=== PATIENT | female | born 1960 | race African-American/Black ===

== ENCOUNTER 2019-08-07 15:19 | Inpatient (IN) | payer MEDICARE, MEDICAID ==
[~2019-08-07] VITALS: Ht 154.9 cm; Wt 54.4 kg
[2019-08-07 16:45] LABS: BASOPHILS % 0.6 % (0.0-2.0); EOSINOPHILS % 0.3 % (0.0-5.0); HEMATOCRIT. 24.4 % (36.0-48.0); HEMOGLOBIN. 8.3 g/dL (12.0-16.0); LYMPHOCYTES % 11.6 % (20.0-50.0); MEAN CORPUSCULAR HEMOGLOBIN 31.5 pg (28.0-32.0); MEAN CORPUSCULAR VOLUME 93.2 fL (81.0-99.0); MEAN PLATELET VOLUME 7.5 fl (7.4-10.4); MONOCYTES % 7.3 % (2.0-8.0); NEUTROPHILS % 80.2 % (40.0-76.0); PLATELET 346 x1000/uL (130-400); RED BLOOD CELL COUNT 2.62 mill/uL (4.2-5.4); RED CELL DISTRIBUTION WIDTH 16.4 % (11.6-14.6)
[2019-08-07] MEDS ORDERED: LABETALOL 5MG/ML SYR 20 MG/4 ML SYRINGE IV ONE ×2 (16:45→17:45)
[2019-08-07 16:48] LABS: CHLORIDE 116 mEq/L (98-107)
[2019-08-07] MEDS ORDERED: PIPERACILLIN/TAZ 3.375G PREMIX 50 ML IV ONE (19:45)
[2019-08-07] MEDS ORDERED: HYDRALAZINE 20MG/ML VIAL IV ONE (21:00)
[2019-08-07 23:50] VITALS: BP 188/107
[2019-08-08] VITALS (24 sets, daily range): BP systolic 141–208; BP diastolic 71–119
[2019-08-08] MEDS ORDERED: ACETAMINOPHEN 325MG TABLET PO PRN (02:00)
[2019-08-08] MEDS: FUROSEMIDE 40MG/4ML VIAL IVP SCH ×2 (03:38→14:47)
[2019-08-08] MEDS: CLONIDINE 0.2MG TABLET PO SCH ×3 (03:38→18:44)
[2019-08-08] MEDS ORDERED: HEPARIN 5000 UNITS/ML VIAL SUBCUT SCH (09:00)
[2019-08-08] MEDS ORDERED: HYDRALAZINE 20MG/ML VIAL IV PRN (10:45)
[2019-08-08] MEDS: PIPERACILLIN/TAZOBACTAM 2.25 G in DEXTROSE 5% WATER 50 ML IV SCH (14:48)
[2019-08-08 15:23] LABS: BASOPHILS % 0.7 % (0.0-2.0); HEMATOCRIT. 24.4 % (36.0-48.0); HEMOGLOBIN. 8.2 g/dL (12.0-16.0); LYMPHOCYTES % 15.5 % (20.0-50.0); MEAN CORPUSCULAR VOLUME 92.1 fL (81.0-99.0); MEAN PLATELET VOLUME 8.4 fl (7.4-10.4); MONOCYTES % 8.7 % (2.0-8.0); NEUTROPHILS % 74.1 % (40.0-76.0); PLATELET 315 x1000/uL (130-400); RED BLOOD CELL COUNT 2.65 mill/uL (4.2-5.4); RED CELL DISTRIBUTION WIDTH 16.5 % (11.6-14.6)
[2019-08-08 15:35] LABS: PROTHROMBIN TIME 10.4 sec (9.6-11.0)
[2019-08-08] MEDS ORDERED: HYDROCODONE/ACETAMINOPHEN 5/325MG TABLET PO PRN (16:00)
[2019-08-08] MEDS ORDERED: DEXTROSE 50% WATER 50ML SYRINGE IV PRN (16:00)
[2019-08-08] MEDS ORDERED: LORAZEPAM 2MG/ML CPJ IV PRN (16:00)
[2019-08-08] MEDS ORDERED: IPRATROPIUM/ALBUTEROL 0.5-3(2.5)MG/3ML NEB HHN PRN (16:00)
[2019-08-08] MEDS ORDERED: ONDANSETRON HCL 4MG/2ML INJ IV PRN (16:00)
[2019-08-08 17:28] LABS: BG BASE EXCESS 1.4 mmol/L (-2.0-2.0); BG CARBOXYHEMOGLOBIN 0.3 % (0.5-1.5); BG DEOXYHEMOGLOBIN 6.9 % (0.0-5.0); BG FRACTION INSPIRED OXYGEN 21; BG HCO3 ACT 24.2 mmol/L (22.0-26.0); BG OXYGEN SATURATION 93.1 % (92.0-98.5); BG OXYHEMOGLOBIN 92.8 % (94.0-97.0); BG PCO2 30.8 mmHg (35.0-45.0); BG PH 7.513 (7.350-7.450); BG PO2 65.4 mmHg (75.0-100.0); BG SAMPLE SITE RIGHT RADIAL; BG TOTAL HEMOGLOBIN 8.3 g/dL (12.0-18.0); BG VENT MODE ROOM AIR
[2019-08-08] MEDS: INSULIN LISPRO 100 UNITS/ML SUBCUT SCH ×2 (18:00→21:00)
[2019-08-08] MEDS: BLOOD SUGAR DIAGNOSTIC STRIP TEST SCH ×2 (18:30→21:41)
[2019-08-08] MEDS ORDERED: EPOETIN ALFA 10000UNITS/ML VIAL SUBCUT SCH (21:00)
[2019-08-09] VITALS (11 sets, daily range): BP systolic 140–154; BP diastolic 68–79
[2019-08-09] MEDS: CLONIDINE 0.2MG TABLET PO SCH ×4 (00:46→18:31)
[2019-08-09] MEDS: PIPERACILLIN/TAZOBACTAM 2.25 G in DEXTROSE 5% WATER 50 ML IV SCH ×2 (00:47→15:41)
[2019-08-09] MEDS: BLOOD SUGAR DIAGNOSTIC STRIP TEST SCH ×3 (07:30→18:24)
[2019-08-09] MEDS ORDERED: FUROSEMIDE 40MG/4ML VIAL IVP SCH (09:00)
[2019-08-09 09:52] LABS: BASOPHILS % 0.8 % (0.0-2.0); EOSINOPHILS % 0.5 % (0.0-5.0); HEMATOCRIT. 24.1 % (36.0-48.0); HEMOGLOBIN. 8.1 g/dL (12.0-16.0); LYMPHOCYTES % 14.9 % (20.0-50.0); MEAN CORPUSCULAR HEMOGLOBIN 31.3 pg (28.0-32.0); MEAN PLATELET VOLUME 8.5 fl (7.4-10.4); NEUTROPHILS % 72.8 % (40.0-76.0); PLATELET 283 x1000/uL (130-400); RED BLOOD CELL COUNT 2.59 mill/uL (4.2-5.4); RED CELL DISTRIBUTION WIDTH 16.7 % (11.6-14.6)
[2019-08-09] MEDS: INSULIN LISPRO 100 UNITS/ML SUBCUT SCH ×3 (10:06→18:00)
[2019-08-09 10:14] LABS: T4 FREE 0.89 ng/dL (0.76-1.46)
[2019-08-09] MEDS ORDERED: DOXY150T PO (16:34)
[2019-08-09] MEDS ORDERED: AMLO5TAB4 MT (16:34)
[2019-08-09] MEDS ORDERED: CLON0.1T PO (16:34)
== END 2019-08-09 19:40 | disposition home or self-care (01) | DRG 177 ==
LOC: ER 15:19 → 5EST 21:02 → EDBEDREQTM 21:04 → EDBEDREQ 21:04 → ENRESERV 22:46
PROVIDERS: ADMIT Internal Medicine; ATTEND Internal Medicine
PROC: 5A1D70Z Performance of Urinary Filtration, Intermittent, Less than 6 Hours Per Day (ICD-10-PCS; principal; 2019-08-08)
PROC: 5A1D70Z Performance of Urinary Filtration, Intermittent, Less than 6 Hours Per Day (ICD-10-PCS; 2019-08-09)
DX: J69.0 Pneumonitis due to inhalation of food and vomit (principal); I50.43 Acute on chronic combined systolic (congestive) and diastolic (congestive) heart failure; N18.6 End stage renal disease; G93.41 Metabolic encephalopathy; I13.2 Hypertensive heart and chronic kidney disease with heart failure and with stage 5 chronic kidney disease, or end stage renal disease; E46 Unspecified protein-calorie malnutrition; H70.11 Chronic mastoiditis, right ear; I16.0 Hypertensive urgency; D64.9 Anemia, unspecified; E11.22 Type 2 diabetes mellitus with diabetic chronic kidney disease; E11.65 Type 2 diabetes mellitus with hyperglycemia; Z91.19 Patient's noncompliance with other medical treatment and regimen; Z99.2 Dependence on renal dialysis; Z68.22 Body mass index [BMI] 22.0-22.9, adult
CPT/HCPCS: 36415; 36600; 71045; 71250; 80048; 80061; 82140; 82375; 82805; 82962; 83036; 83880; 84439; 84443; 84484; 93005; 93306; 99285; J0360; J0885; J1644; J1815; J1940; J2543; J3490; J7060

== ENCOUNTER 2019-09-08 07:44 | Emergency (ER) | payer MEDICARE, MEDICAID ==
[~2019-09-08] VITALS: Ht 165.1 cm; Wt 55.0 kg
[~2019-09-08 07:44] MED LIST: AMLO5TAB4 MT; CLON0.1T PO; DOXY150T PO
[2019-09-08] MEDS ORDERED: MAGNESIUM/ALUMINUM HYDROXIDE/SIMETHICONE 30ML UDC PO STA (08:05)
[2019-09-08 08:52] LABS: HEMATOCRIT. 30.4 % (36.0-48.0); HEMOGLOBIN. 9.9 g/dL (12.0-16.0); MEAN CORPUSCULAR HEMOGLOBIN 30.1 pg (28.0-32.0); MEAN CORPUSCULAR VOLUME 92.5 fL (81.0-99.0); MEAN PLATELET VOLUME 8.3 fl (7.4-10.4); PLATELET 542 x1000/uL (130-400); RED BLOOD CELL COUNT 3.29 mill/uL (4.2-5.4)
[2019-09-08 09:00] LABS: CHLORIDE 101 mEq/L (98-107)
[2019-09-08 09:56] LABS: PLATELET ESTIMATE INCREASED
[2019-09-08] MEDS ORDERED: ONDANSETRON HCL 4MG/2ML INJ IV STA (10:12)
[2019-09-08] MEDS ORDERED: MORPHINE SULFATE 4 MG/ML CPJ (NOT FOR IM USE) IV STA (10:12)
[2019-09-08] MEDS ORDERED: HYDRALAZINE 20MG/ML VIAL IV ONE (13:00)
[2019-09-08 13:26] VITALS: BP 167/82
== END 2019-09-08 13:45 | disposition short-term general hospital (02) ==
LOC: ER 09:05
DX: E87.70 Fluid overload, unspecified (principal); I12.0 Hypertensive chronic kidney disease with stage 5 chronic kidney disease or end stage renal disease; N18.6 End stage renal disease; Z99.2 Dependence on renal dialysis; K59.00 Constipation, unspecified; Z98.890 Other specified postprocedural states; Z79.899 Other long term (current) drug therapy
CPT/HCPCS: 36415; 71045; 74176; 80053; 83690; 84484; 85025; 96374; 96375; 99285; J0360; J2270; J2405

== ENCOUNTER 2020-03-13 21:05 | Emergency (ER) | payer MEDICARE, MEDICAID ==
[~2020-03-13] VITALS: Ht 167.6 cm; Wt 55.0 kg
[~2020-03-13 21:05] MED LIST changes: +ALBU90AE INH; +AMOX250S70 MT; -DOXY150T PO; +HYDR100T26 MT
[2020-03-13] MEDS ORDERED: ASPIRIN 81MG TABLET PO ONE (22:30)
[2020-03-13 23:05] LABS: BASOPHILS % 0.9 % (0.0-2.0); EOSINOPHILS % 0.1 % (0.0-5.0); HEMATOCRIT. 29.5 % (36.0-48.0); HEMOGLOBIN. 9.8 g/dL (12.0-16.0); LYMPHOCYTES % 9.1 % (20.0-50.0); MEAN CORPUSCULAR HEMOGLOBIN 30.1 pg (28.0-32.0); MEAN CORPUSCULAR VOLUME 90.3 fL (81.0-99.0); MEAN PLATELET VOLUME 8.4 fl (7.4-10.4); MONOCYTES % 5.6 % (2.0-8.0); NEUTROPHILS % 84.3 % (40.0-76.0); PLATELET 318 x1000/uL (130-400); RED BLOOD CELL COUNT 3.27 mill/uL (4.2-5.4); RED CELL DISTRIBUTION WIDTH 16.4 % (11.6-14.6)
[2020-03-13 23:09] LABS: CHLORIDE 118 mEq/L (98-107)
[2020-03-14 08:20] VITALS: BP 148/68
== END 2020-03-14 08:35 | disposition short-term general hospital (02) ==
LOC: ER 21:05
DX: I12.0 Hypertensive chronic kidney disease with stage 5 chronic kidney disease or end stage renal disease (principal); R53.1 Weakness; E11.22 Type 2 diabetes mellitus with diabetic chronic kidney disease; N18.6 End stage renal disease; R94.39 Abnormal result of other cardiovascular function study; J44.9 Chronic obstructive pulmonary disease, unspecified; Z03.818 Encounter for observation for suspected exposure to other biological agents ruled out; Z99.2 Dependence on renal dialysis
CPT/HCPCS: 36415; 71045; 80053; 83880; 84484; 85025; 87635; 93005; 99285; C9803

== ENCOUNTER 2020-03-18 03:45 | Inpatient (IN) | payer MEDICARE, MEDICAID ==
[~2020-03-18] VITALS: Ht 167.6 cm; Wt 55.8 kg
[2020-03-18 05:54] LABS: BASOPHILS % 0.5 % (0.0-2.0); EOSINOPHILS % 0.3 % (0.0-5.0); HEMATOCRIT. 25.3 % (36.0-48.0); HEMOGLOBIN. 8.3 g/dL (12.0-16.0); LYMPHOCYTES % 10.4 % (20.0-50.0); MEAN CORPUSCULAR HEMOGLOBIN 29.7 pg (28.0-32.0); MEAN CORPUSCULAR VOLUME 90.3 fL (81.0-99.0); MEAN PLATELET VOLUME 8.4 fl (7.4-10.4); MONOCYTES % 6.1 % (2.0-8.0); NEUTROPHILS % 82.7 % (40.0-76.0); PLATELET 254 x1000/uL (130-400); RED CELL DISTRIBUTION WIDTH 16.6 % (11.6-14.6)
[2020-03-18 06:02] LABS: CHLORIDE 110 mEq/L (98-107)
[2020-03-18] MEDS ORDERED: DEXTROSE 50% WATER 50ML SYRINGE IV ONE (06:45)
[2020-03-18] MEDS ORDERED: INSULIN REGULAR (HUMULIN R) 300UNITS/3ML IV ONE (06:45)
[2020-03-18] MEDS ORDERED: CALCIUM CHLORIDE 1GM/10ML SYR IV ONE (06:45)
[2020-03-18] MEDS ORDERED: SODIUM BICARBONATE 8.4% 1 MEQ/ML 50ML SYR IV ONE (06:45)
[2020-03-18] MEDS ORDERED: ALBUTEROL (0.083%) 2.5MG/3ML NEB HHN ONE (06:45)
[2020-03-18 12:15] VITALS: BP 166/99
[2020-03-18 12:53] VITALS: BP 166/99
[2020-03-18] MEDS ORDERED: ACETAMINOPHEN 650MG SUPP PR PRN (13:00)
[2020-03-18] MEDS ORDERED: DIPHENHYDRAMINE 50MG/ML VIAL IV PRN (13:00)
[2020-03-18] MEDS ORDERED: MAGNESIUM/ALUMINUM HYDROXIDE/SIMETHICONE 30ML UDC PO PRN (13:00)
[2020-03-18] MEDS ORDERED: ONDANSETRON HCL 4MG/2ML INJ IV PRN (13:00)
[2020-03-18] MEDS ORDERED: DEXTROSE 50% WATER 50ML SYRINGE IV PRN (13:00)
[2020-03-18] MEDS ORDERED: ACETAMINOPHEN 325MG TABLET PO PRN (13:00)
[2020-03-18] MEDS ORDERED: HYDRALAZINE 20MG/ML VIAL IV PRN (13:00)
[2020-03-18] MEDS ORDERED: HYDROCODONE/ACETAMINOPHEN 5/325MG TABLET PO PRN (13:00)
[2020-03-18] MEDS ORDERED: IPRATROPIUM/ALBUTEROL 0.5-3(2.5)MG/3ML NEB NEB PRN (13:00)
[2020-03-18] MEDS: AMLODIPINE 5MG TABLET PO SCH (13:00)
[2020-03-18] MEDS: CLONIDINE 0.1MG TABLET PO SCH ×2 (13:00→21:55)
[2020-03-18] MEDS ORDERED: CLONIDINE 0.1MG TABLET PO PRN (13:00)
[2020-03-18] MEDS ORDERED: GUAIFENESIN 200MG/10ML SUGAR FREE UDC PO PRN (13:00)
[2020-03-18] MEDS ORDERED: DOCUSATE SODIUM 100MG CAPSULE PO PRN (13:00)
[2020-03-18] MEDS ORDERED: LORAZEPAM 0.5MG TABLET PO PRN (13:00)
[2020-03-18] MEDS ORDERED: LORAZEPAM 2MG/ML CPJ IV PRN (13:45)
[2020-03-18] MEDS: HYDRALAZINE HCL 100MG TABLET PO SCH ×2 (14:00→21:54)
[2020-03-18] MEDS ORDERED: LEVOFLOXACIN 500MG PREMIX 100 ML IV SCH (15:00)
[2020-03-18 15:42] VITALS: BP 179/100
[2020-03-18 15:53] LABS: HEMATOCRIT 22.3 % (36.0-48.0); HEMOGLOBIN 7.5 g/dL (12.0-16.0)
[2020-03-18] MEDS ORDERED: DIATR MEGLU/DIATRIZOATE SOLN 30ML PO NR (16:00)
[2020-03-18 16:09] LABS: TOTAL IRON BINDING CAPACITY 221 ug/dL (250-450)
[2020-03-18 16:12] LABS: CREATINE KINASE MB FRACTION 5.7 ng/mL (0.5-3.6)
[2020-03-18] MEDS: BLOOD SUGAR DIAGNOSTIC STRIP TEST SCH ×2 (16:45→20:49)
[2020-03-18] MEDS: INSULIN LISPRO 100 UNITS/ML SUBCUT SCH ×2 (17:15→20:49)
[2020-03-18] MEDS: PANTOPRAZOLE SODIUM 40 MG/VIAL IV SCH (17:49)
[2020-03-18 20:00] VITALS: BP 153/79
[2020-03-18] MEDS ORDERED: EPOETIN ALFA 10000UNITS/ML VIAL SUBCUT SCH (21:00)
[2020-03-18 21:15] LABS: INR 1.1; PROTHROMBIN TIME 11.3 sec (9.6-11.0)
[2020-03-18 21:39] LABS: HEPATITIS B SURFACE ANTIGEN NEGATIVE
[2020-03-18 22:09] LABS: HEPATITIS A AB IGM NEGATIVE (NEGATIVE)
[2020-03-18 22:38] LABS: CREATINE KINASE MB FRACTION 4.1 ng/mL (0.5-3.6)
[2020-03-19] VITALS (7 sets, daily range): BP systolic 138–190; BP diastolic 68–105
[2020-03-19] MEDS: DEXT 5%/0.45% NACL 1000ML 1,000 ML IV SCH ×2 (00:43→20:00)
[2020-03-19] MEDS: INSULIN LISPRO 100 UNITS/ML SUBCUT SCH ×4 (05:52→20:54)
[2020-03-19] MEDS: BLOOD SUGAR DIAGNOSTIC STRIP TEST SCH ×4 (05:52→20:53)
[2020-03-19] MEDS: HYDRALAZINE HCL 100MG TABLET PO SCH ×3 (06:22→21:04)
[2020-03-19] MEDS ORDERED: DIATR MEGLU/DIATRIZOATE SOLN 30ML PO SCH (06:30)
[2020-03-19] MEDS: PANTOPRAZOLE SODIUM 40 MG/VIAL IV SCH ×2 (09:00→17:00)
[2020-03-19] MEDS: CLONIDINE 0.1MG TABLET PO SCH ×2 (09:00→20:53)
[2020-03-19] MEDS: AMLODIPINE 5MG TABLET PO SCH (09:00)
[2020-03-20] VITALS: BP 150/79
[2020-03-20] MEDS ORDERED: LEVOFLOXACIN 250MG PREMIX 50 ML IV SCH (11:00)
== END 2020-03-20 01:08 | disposition left against medical advice (07) | DRG 377 ==
LOC: ER 03:45 → 5WST 08:39 → ENRESERV 10:59 → ER 11:27
PROVIDERS: ADMIT Internal Medicine; ATTEND Internal Medicine
PROC: 5A1D70Z Performance of Urinary Filtration, Intermittent, Less than 6 Hours Per Day (ICD-10-PCS; principal; 2020-03-18)
PROC: 5A1D70Z Performance of Urinary Filtration, Intermittent, Less than 6 Hours Per Day (ICD-10-PCS; 2020-03-19)
DX: K57.91 Diverticulosis of intestine, part unspecified, without perforation or abscess with bleeding (principal); J18.9 Pneumonia, unspecified organism; N18.6 End stage renal disease; G92 Toxic encephalopathy; I12.0 Hypertensive chronic kidney disease with stage 5 chronic kidney disease or end stage renal disease; D64.9 Anemia, unspecified; E11.22 Type 2 diabetes mellitus with diabetic chronic kidney disease; E78.5 Hyperlipidemia, unspecified; E87.5 Hyperkalemia; R74.0 Nonspecific elevation of levels of transaminase and lactic acid dehydrogenase [LDH]; K64.9 Unspecified hemorrhoids; F41.9 Anxiety disorder, unspecified; K08.109 Complete loss of teeth, unspecified cause, unspecified class; D63.8 Anemia in other chronic diseases classified elsewhere; J45.909 Unspecified asthma, uncomplicated; Z91.19 Patient's noncompliance with other medical treatment and regimen; Z99.2 Dependence on renal dialysis; Z79.899 Other long term (current) drug therapy
CPT/HCPCS: 36415; 71045; 80053; 82550; 82553; 82728; 82962; 83540; 83550; 84132; 84484; 85014; 85018; 85025; 85044; 86705; 86709; 86803; 86850; 86870; 86900; 87340; 96374; 99291; C9113; J0885; J1815; J1956; J2060; J3490; Q9963

== ENCOUNTER 2020-04-19 09:06 | Inpatient (IN) | payer MEDICARE, MEDICAID ==
[~2020-04-19] VITALS: Ht 165.1 cm; Wt 55.8 kg
[2020-04-19 10:24] LABS: BASOPHILS % 0.5 % (0.0-2.0); EOSINOPHILS % 0.1 % (0.0-5.0); HEMATOCRIT. 23.9 % (36.0-48.0); HEMOGLOBIN. 7.7 g/dL (12.0-16.0); LYMPHOCYTES % 12.3 % (20.0-50.0); MEAN CORPUSCULAR HEMOGLOBIN 29.2 pg (28.0-32.0); MEAN CORPUSCULAR VOLUME 90.9 fL (81.0-99.0); MEAN PLATELET VOLUME 7.4 fl (7.4-10.4); MONOCYTES % 6.5 % (2.0-8.0); NEUTROPHILS % 80.6 % (40.0-76.0); PLATELET 411 x1000/uL (130-400); RED BLOOD CELL COUNT 2.63 mill/uL (4.2-5.4); RED CELL DISTRIBUTION WIDTH 18.5 % (11.6-14.6)
[2020-04-19 10:30] LABS: CHLORIDE 114 mEq/L (98-107)
[2020-04-19] MEDS ORDERED: LABETALOL 5MG/ML SYR 20 MG/4 ML SYRINGE IV ONE (12:15)
[2020-04-19] MEDS ORDERED: HYDRALAZINE 20MG/ML VIAL IV ONE (12:15)
[2020-04-19] MEDS ORDERED: MORPHINE SULFATE 2 MG/ML CPJ (NOT FOR IM USE) IV PRN (12:45)
[2020-04-19] MEDS ORDERED: LOSARTAN POTASSIUM 50 MG TABLET PO SCH (12:45)
[2020-04-19] MEDS ORDERED: NITROGLYCERIN OINT 1GM/INCH UDPKT TD ONE (12:45)
[2020-04-19 15:00] VITALS: BP 200/97
[2020-04-19] MEDS ORDERED: HYDRALAZINE HCL 50MG TABLET PO NR (15:00)
[2020-04-19] MEDS ORDERED: DEXTROSE 50% WATER 50ML SYRINGE IV PRN (15:15)
[2020-04-19] MEDS ORDERED: LORAZEPAM 0.5MG TABLET PO PRN (15:15)
[2020-04-19] MEDS ORDERED: CLONIDINE 0.1MG TABLET PO PRN (15:15)
[2020-04-19] MEDS ORDERED: HYDROCODONE/APAP 7.5/325MG 1 TAB TABLET PO PRN (15:15)
[2020-04-19] MEDS ORDERED: IPRATROPIUM/ALBUTEROL 0.5-3(2.5)MG/3ML NEB NEB PRN (15:15)
[2020-04-19] MEDS ORDERED: ACETAMINOPHEN 650MG/20.3ML UDC GT PRN (15:15)
[2020-04-19] MEDS ORDERED: DIPHENHYDRAMINE 50MG/ML VIAL IV PRN (15:15)
[2020-04-19] MEDS ORDERED: GUAIFENESIN 200MG/10ML SUGAR FREE UDC PO PRN (15:15)
[2020-04-19] MEDS ORDERED: ONDANSETRON HCL 4MG/2ML INJ IV PRN (15:15)
[2020-04-19] MEDS ORDERED: DOCUSATE SODIUM 100MG CAPSULE PO PRN (15:15)
[2020-04-19 15:30] VITALS: BP 200/97
[2020-04-19] MEDS: AMLODIPINE 10MG TABLET PO SCH (15:47)
[2020-04-19 16:00] VITALS: BP 188/103
[2020-04-19] MEDS: INSULIN LISPRO 100 UNITS/ML SUBCUT SCH ×2 (17:09→21:00)
[2020-04-19] MEDS: BLOOD SUGAR DIAGNOSTIC STRIP TEST SCH ×2 (17:09→21:35)
[2020-04-19] MEDS: HYDRALAZINE 20MG/ML VIAL IV PRN (17:59)
[2020-04-19 19:15] LABS: HEMOGLOBIN 7.6 g/dL (12.0-16.0)
[2020-04-19 20:00] VITALS: BP 189/104
[2020-04-19] MEDS ORDERED: EPOETIN ALFA 10000UNITS/ML VIAL SUBCUT SCH (21:00)
[2020-04-19] MEDS: PANTOPRAZOLE 40MG DR TABLET PO SCH (21:34)
[2020-04-19] MEDS: HYDRALAZINE HCL 50MG TABLET PO SCH (21:35)
[2020-04-19 23:41] LABS: CREATINE KINASE MB FRACTION 4.3 ng/mL (0.5-3.6)
[2020-04-20] VITALS (11 sets, daily range): BP systolic 158–216; BP diastolic 90–103
[2020-04-20] MEDS: BLOOD SUGAR DIAGNOSTIC STRIP TEST SCH ×4 (06:25→20:49)
[2020-04-20] MEDS: INSULIN LISPRO 100 UNITS/ML SUBCUT SCH ×4 (06:26→20:49)
[2020-04-20] MEDS: PANTOPRAZOLE 40MG DR TABLET PO SCH ×2 (06:30→20:38)
[2020-04-20] MEDS: HYDRALAZINE HCL 50MG TABLET PO SCH ×2 (06:30→13:07)
[2020-04-20 08:50] LABS: BASOPHILS % 0.8 % (0.0-2.0); EOSINOPHILS % 0.1 % (0.0-5.0); HEMATOCRIT. 21.6 % (36.0-48.0); LYMPHOCYTES % 11.9 % (20.0-50.0); MEAN CORPUSCULAR HEMOGLOBIN 29.4 pg (28.0-32.0); MEAN CORPUSCULAR VOLUME 91.3 fL (81.0-99.0); MEAN PLATELET VOLUME 7.7 fl (7.4-10.4); MONOCYTES % 5.8 % (2.0-8.0); NEUTROPHILS % 81.4 % (40.0-76.0); PLATELET 399 x1000/uL (130-400); RED BLOOD CELL COUNT 2.36 mill/uL (4.2-5.4); RED CELL DISTRIBUTION WIDTH 18.6 % (11.6-14.6)
[2020-04-20 09:01] LABS: CHLORIDE 114 mEq/L (98-107)
[2020-04-20 09:09] LABS: HDL CHOLESTEROL 67 mg/dL (40-59)
[2020-04-20 09:10] LABS: LDL CHOLESTEROL 118 mg/dL (5-100)
[2020-04-20 09:11] LABS: CREATINE KINASE 95 IU/L (26-192); HEMOGLOBIN. 6.9 g/dL (12.0-16.0)
[2020-04-20] MEDS: LOSARTAN POTASSIUM 50 MG TABLET PO SCH ×2 (11:48→17:34)
[2020-04-20] MEDS: ASPIRIN 81MG EC TABLET PO SCH (11:49)
[2020-04-20] MEDS: AMLODIPINE 10MG TABLET PO SCH (11:49)
[2020-04-20] MEDS ORDERED: HYDRALAZINE HCL 50MG TABLET PO NR (14:00)
[2020-04-20] MEDS ORDERED: CLONIDINE 0.2MG TABLET PO PRN (15:15)
[2020-04-20] MEDS: NITROGLYCERIN OINT 1GM/INCH UDPKT TD SCH ×2 (15:29→23:24)
[2020-04-20 20:24] LABS: HEMATOCRIT 24.4 % (36.0-48.0); HEMOGLOBIN 7.9 g/dL (12.0-16.0)
[2020-04-20] MEDS: HYDRALAZINE 20MG/ML VIAL IV PRN (20:37)
[2020-04-20] MEDS: HYDRALAZINE HCL 100MG TABLET PO SCH (23:24)
[2020-04-21] VITALS (7 sets, daily range): BP systolic 136–162; BP diastolic 57–85
[2020-04-21] MEDS: HYDRALAZINE HCL 100MG TABLET PO SCH ×2 (06:01→14:16)
[2020-04-21] MEDS: NITROGLYCERIN OINT 1GM/INCH UDPKT TD SCH ×2 (06:01→14:17)
[2020-04-21] MEDS: PANTOPRAZOLE 40MG DR TABLET PO SCH (06:04)
[2020-04-21 07:46] LABS: HEMATOCRIT 24.9 % (36.0-48.0); HEMOGLOBIN 8.1 g/dL (12.0-16.0); MEAN CORPUSCULAR HEMOGLOBIN 29.6 pg (28.0-32.0); MEAN CORPUSCULAR VOLUME 91.2 fL (81.0-99.0); PLATELET 358 x1000/uL (130-400); RED BLOOD CELL COUNT 2.73 mill/uL (4.2-5.4); RED CELL DISTRIBUTION WIDTH 17.7 % (11.6-14.6)
[2020-04-21] MEDS: ASPIRIN 81MG EC TABLET PO SCH (08:55)
[2020-04-21] MEDS: LOSARTAN POTASSIUM 50 MG TABLET PO SCH ×2 (08:55→17:16)
[2020-04-21] MEDS: AMLODIPINE 10MG TABLET PO SCH (08:55)
[2020-04-21] MEDS: BLOOD SUGAR DIAGNOSTIC STRIP TEST SCH ×2 (11:52→16:54)
[2020-04-21] MEDS: INSULIN LISPRO 100 UNITS/ML SUBCUT SCH ×2 (11:52→16:54)
[2020-04-21] MEDS: HYDRALAZINE 20MG/ML VIAL IV PRN (17:16)
== END 2020-04-21 18:00 | disposition home or self-care (01) | DRG 291 ==
LOC: ER 09:21 → 5WST 13:20 → EDBEDREQTM 13:33 → EDBEDREQ 13:33 → ENRESERV 13:58
PROVIDERS: ADMIT Internal Medicine; ATTEND Internal Medicine
PROC: 5A1D70Z Performance of Urinary Filtration, Intermittent, Less than 6 Hours Per Day (ICD-10-PCS; principal; 2020-04-20)
PROC: 30233N1 Transfusion of Nonautologous Red Blood Cells into Peripheral Vein, Percutaneous Approach (ICD-10-PCS; 2020-04-20)
DX: I13.2 Hypertensive heart and chronic kidney disease with heart failure and with stage 5 chronic kidney disease, or end stage renal disease (principal); I50.33 Acute on chronic diastolic (congestive) heart failure; N18.6 End stage renal disease; B19.20 Unspecified viral hepatitis C without hepatic coma; D64.9 Anemia, unspecified; E11.22 Type 2 diabetes mellitus with diabetic chronic kidney disease; E11.65 Type 2 diabetes mellitus with hyperglycemia; K22.5 Diverticulum of esophagus, acquired; F32.9 Major depressive disorder, single episode, unspecified; I07.1 Rheumatic tricuspid insufficiency; R79.89 Other specified abnormal findings of blood chemistry; R07.89 Other chest pain; I16.0 Hypertensive urgency; I27.20 Pulmonary hypertension, unspecified; I37.1 Nonrheumatic pulmonary valve insufficiency; J44.9 Chronic obstructive pulmonary disease, unspecified; Z91.19 Patient's noncompliance with other medical treatment and regimen; Z99.2 Dependence on renal dialysis; Z79.899 Other long term (current) drug therapy; Z87.01 Personal history of pneumonia (recurrent); Z98.49 Cataract extraction status, unspecified eye; Z87.440 Personal history of urinary (tract) infections
CPT/HCPCS: 36415; 71045; 80048; 80053; 80061; 82270; 82550; 82553; 82962; 83880; 84443; 84484; 85014; 85018; 85025; 85027; 86850; 86870; 86900; 86920; 93005; 94640; 99285; J0360; J0885; J2270; J3490; P9016

== ENCOUNTER 2020-04-29 20:02 | Emergency (ER) | payer MEDICARE, MEDICAID ==
[~2020-04-29] VITALS: Ht 165.1 cm; Wt 64.0 kg
[2020-04-29 21:59] LABS: BASOPHILS % 0.6 % (0.0-2.0); EOSINOPHILS % 0.1 % (0.0-5.0); HEMATOCRIT. 29.5 % (36.0-48.0); HEMOGLOBIN. 9.3 g/dL (12.0-16.0); LYMPHOCYTES % 19.2 % (20.0-50.0); MEAN CORPUSCULAR HEMOGLOBIN 30.9 pg (28.0-32.0); MEAN CORPUSCULAR VOLUME 98.4 fL (81.0-99.0); MEAN PLATELET VOLUME 7.9 fl (7.4-10.4); MONOCYTES % 8.6 % (2.0-8.0); NEUTROPHILS % 71.5 % (40.0-76.0); PLATELET 450 x1000/uL (130-400); RED CELL DISTRIBUTION WIDTH 22.5 % (11.6-14.6)
[2020-04-29 22:03] LABS: CHLORIDE 108 mEq/L (98-107)
[2020-04-29 22:17] LABS: PLATELET ESTIMATE NORMAL
[2020-04-29] MEDS ORDERED: NITROGLYCERIN OINT 1GM/INCH UDPKT TD ONE (22:45)
[2020-04-29] MEDS ORDERED: HYDRALAZINE 20MG/ML VIAL IV ONE (22:45)
[2020-04-30] MEDS ORDERED: HYDRALAZINE 20MG/ML VIAL IV NR ×2 (00:15→02:00)
[2020-04-30 01:00] VITALS: BP 204/100
== END 2020-04-30 02:18 | disposition short-term general hospital (02) ==
LOC: ER 20:02 → EDBEDREQ 21:22 → CANRESERV 22:06 → ENRESERV 22:06 → CANBEDREQ 04-30 00:06 → ER 04-30 02:18
DX: I13.2 Hypertensive heart and chronic kidney disease with heart failure and with stage 5 chronic kidney disease, or end stage renal disease (principal); E11.22 Type 2 diabetes mellitus with diabetic chronic kidney disease; I50.9 Heart failure, unspecified; R06.00 Dyspnea, unspecified; R09.02 Hypoxemia; J45.909 Unspecified asthma, uncomplicated; N18.6 End stage renal disease; Z91.15 Patient's noncompliance with renal dialysis; Z99.2 Dependence on renal dialysis
CPT/HCPCS: 36415; 71045; 80053; 83690; 83880; 84484; 85025; 93005; 96374; 96376; 99285; J0360

== ENCOUNTER 2020-05-15 23:51 | Emergency (ER) | payer MEDICARE, MEDICAID ==
[~2020-05-15] VITALS: Ht 162.6 cm; Wt 73.0 kg
[2020-05-16 01:27] LABS: BASOPHILS % 0.4 % (0.0-2.0); EOSINOPHILS % 0.1 % (0.0-5.0); HEMATOCRIT. 25.7 % (36.0-48.0); HEMOGLOBIN. 8.3 g/dL (12.0-16.0); LYMPHOCYTES % 12.5 % (20.0-50.0); MEAN CORPUSCULAR HEMOGLOBIN 30.7 pg (28.0-32.0); MEAN CORPUSCULAR VOLUME 95.7 fL (81.0-99.0); MEAN PLATELET VOLUME 7.9 fl (7.4-10.4); MONOCYTES % 10.7 % (2.0-8.0); NEUTROPHILS % 76.3 % (40.0-76.0); PLATELET 307 x1000/uL (130-400); RED BLOOD CELL COUNT 2.69 mill/uL (4.2-5.4); RED CELL DISTRIBUTION WIDTH 19.4 % (11.6-14.6)
[2020-05-16 01:33] LABS: CHLORIDE 100 mEq/L (98-107)
[2020-05-16] MEDS ORDERED: ASPIRIN 325MG EC TABLET PO SCH (02:00)
[2020-05-16] MEDS ORDERED: POTASSIUM CHLORIDE 20MEQ TABLET SR PO SCH (02:00)
[2020-05-16] MEDS ORDERED: FUROSEMIDE 40MG/4ML VIAL IVP SCH (02:00)
[2020-05-16] MEDS ORDERED: FUROSEMIDE 40MG TABLET PO SCH (02:00)
[2020-05-16 06:36] VITALS: BP 107/48
== END 2020-05-16 06:45 | disposition short-term general hospital (02) ==
LOC: ER 23:51 → CANBEDREQ 05-16 03:25 → ER 05-16 06:45
DX: I13.2 Hypertensive heart and chronic kidney disease with heart failure and with stage 5 chronic kidney disease, or end stage renal disease (principal); E11.22 Type 2 diabetes mellitus with diabetic chronic kidney disease; I50.9 Heart failure, unspecified; N18.6 End stage renal disease; E87.6 Hypokalemia; J45.909 Unspecified asthma, uncomplicated; R79.89 Other specified abnormal findings of blood chemistry; Z20.828 Contact with and (suspected) exposure to other viral communicable diseases; Z79.899 Other long term (current) drug therapy; Z99.2 Dependence on renal dialysis
CPT/HCPCS: 36415; 71045; 80053; 83880; 84484; 85025; 87635; 93005; 96374; 99291; C9803; J1940; 99285